=== PATIENT | female | born 1980 | race Caucasian/White ===

== ENCOUNTER 2016-10-29 12:50 | Inpatient (IN) | payer BC, OTHER ==
[2016-10-29] MEDS ORDERED: IV START KIT ONE (13:13)
[2016-10-29] MEDS ORDERED: OXYTOCIN 10 UNITS/ML VIAL ONE (13:13)
[2016-10-29] MEDS ORDERED: MINERAL OIL 25 ML BOT ONE (13:13)
[2016-10-29] MEDS ORDERED: SODIUM CHLORIDE 0.9% FLUSH 20 ML ONE (13:13)
[2016-10-29] MEDS ORDERED: LIDOCAINE 1% (PRES FREE) 30 ML VIAL ONE (13:13)
[2016-10-29] MEDS ORDERED: PUMP TUBING ONE (13:14)
[2016-10-29] MEDS ORDERED: LIDOCAINE Viscous 2% 15 ML UDCUP ONE (13:14)
[2016-10-29] MEDS ORDERED: OXYTOCIN IN LR 500 ML IV ONE ×2 (13:14→13:25)
[2016-10-29 14:49] VITALS: BMI 43.0
[2016-10-29 15:01] LABS: HEMOGLOBIN 11.7 gm/l (12.0-16.0); MEAN CELL VOLUME 84.3 fl (81.0-99.0); MEAN CORPUSCULAR HEMOGLOBIN 28.2 pg (27.0-31.0); MEAN CORPUSCULAR HGB CONC 33.4 g/dl (33.0-37.0)
[2016-10-29] MEDS ORDERED: MINERAL OIL 25 ML BOT TP ONE (21:13)
--- NOTE | 2016-10-29 21:34 | PCMDEL ---
Delivery Note - Delivery Delivery (Date): 10/29/16 Gender: Female Presentation: Cephalic Position: OA Umbilical Cord: 3 Vessel Delayed Cord Clamping:: > 3 min Placenta:: spontaneous and complete EBL:: 350 ml Perineum:: intact
--- NOTE | 2016-10-29 21:37 | PCMAN ---
OB Admission Note - History : 4 Term: 3 : 0 Abortions (S&E): 0 Livin Gestational Age (weeks): 38 Days (#/7): 0 Admit Cervical Dilation:: 3 Admit Cervical Effacement (%):: 50 Admit Station:: -2 Admit Presentaton:: vtx Membrane Status: Intact Rupture (Date): 10/29/16 Contractions: Yes Contraction Frequency:: irreg Heart Rate:: 144 Status:: good Summary of Course:: complicated by N&V, needed IV infusions 2x/wk. Hx severe back pain, used percocet 10mg QID thru - Labs Blood Type: O (+) positive
[2016-10-29] MEDS ORDERED: MEASLES,MUMPS&RUBELLA VACCINE 0.5 ML VIAL SUB-Q V ONE (21:49)
[2016-10-29] MEDS ORDERED: MAGNESIUM HYDROXIDE 30 ML UDCUP PO PRN (21:49)
[2016-10-29] MEDS ORDERED: LANOLIN 50 APPLIC/7G TUBE TP PRN (21:49)
[2016-10-29] MEDS ORDERED: DIPHTH,PERTUSS(ACELL),TET VAC 0.5 ML VIAL IM V ONE (21:49)
[2016-10-29] MEDS ORDERED: BENZOCAINE/MENTHOL 60 APPLIC/BOT TP PRN (21:49)
[2016-10-29] MEDS ORDERED: FLU VACC 2016-17 (36MO-64Y)/PF 60 MCG/0.5 ML SYRINGE IM V ONE (22:14)
[2016-10-29] MEDS: OXYCODONE/ACETAMINOPHEN 5/325 MG TABLET PO PRN (22:14)
[2016-10-29] MEDS: IBUPROFEN 800 MG TABLET PO PRN (22:14)
[2016-10-30] MEDS: IBUPROFEN 800 MG TABLET PO PRN ×4 (04:25→23:57)
[2016-10-30] MEDS: OXYCODONE/ACETAMINOPHEN 5/325 MG TABLET PO PRN ×5 (04:25→23:57)
[2016-10-30 07:00] LABS: HEMATOCRIT 32.2 % (37.0-47.0); HEMOGLOBIN 10.6 gm/l (12.0-16.0)
--- NOTE | 2016-10-30 09:34 | PDOC44 ---
- Subjective Day: 1 Reports Pain Tolerable, Reports Lochia Light, Reports Tolerating Regular Diet - Objective Temp Pulse Resp BP Pulse Ox 97.7 F 87 16 116/60 10/30/16 01:35 10/30/16 01:35 10/30/16 01:35 10/30/16 01:35 Lab Results 10/30/16 10/29/16 06:15 13:50 WBC 9.6 RBC 4.15 L Hgb 10.6 L 11.7 L Hct 32.2 L 35.0 L Plt Count 262 Current Medications Generic Name Dose Route Start Last Admin Trade Name Freq PRN Reason Stop Dose Admin Benzocaine/Menthol 1 applic 10/29/16 21:49 Dermoplast TP PRN PRN Patient Comfort Docusate Sodium 100 mg 10/30/16 09:00 Colace PO DAILY [facility] Emollient Ointment 1 applic 10/29/16 21:49 [id number] TP PRN PRN sore nipples Ibuprofen 800 mg 10/29/16 21:49 10/30/16 04:25 Motrin PO 800 mg Q6H PRN Administration Pain (Mild) Magnesium Hydroxide 30 ml 10/29/16 21:49 Milk Of Magnesia PO BEDTIME PRN Constipation Oxycodone/Acetaminophen 1 - 2 tab 10/29/16 21:49 10/30/16 04:25 Percocet 5/325 PO 2 tab Q4H PRN Administration Pain (Moderate) Sodium Chloride 10 ml 10/29/16 21:49 Normal Saline 10ml Flush IV PRN PRN IV Flush Sodium Chloride 10 ml 10/30/16 01:00 10/30/16 03:27 Normal Saline 10ml Flush IV Not Given Q8HR NIRAV - Physical Exam General: Afebrile Psych/Mental Status: Mood/Affect Appropriate Breast: Soft Fundus: Firm Abdomen: Normal Bowel Sounds Genitourinary: Normal Female Genitalia Disposition: Stable, Anticipate DC Home Tomorrow
[2016-10-30] MEDS: DOCUSATE SODIUM 100 MG CAPSULE PO SCH (10:13)
[2016-10-31] MEDS: OXYCODONE/ACETAMINOPHEN 5/325 MG TABLET PO PRN ×4 (04:31→20:29)
[2016-10-31] MEDS: DOCUSATE SODIUM 100 MG CAPSULE PO SCH (08:44)
[2016-10-31] MEDS: IBUPROFEN 800 MG TABLET PO PRN ×2 (08:44→16:06)
--- NOTE | 2016-10-31 09:59 | PDOC44 ---
- Subjective Day: 2 Reports Pain Tolerable, Reports , Reports Tolerating Regular Diet - Objective Temp Pulse Resp BP Pulse Ox 97.7 F 71 18 122/73 10/31/16 08:25 10/31/16 08:25 10/31/16 08:25 10/31/16 08:25 Current Medications Generic Name Dose Route Start Last Admin Trade Name Freq PRN Reason Stop Dose Admin Benzocaine/Menthol 1 applic 10/29/16 21:49 Dermoplast TP PRN PRN Patient Comfort Docusate Sodium 100 mg 10/30/16 09:00 10/31/16 08:44 Colace PO 100 mg DAILY NIRAV Administration Emollient Ointment 1 applic 10/29/16 21:49 [id number] TP PRN PRN sore nipples Ibuprofen 800 mg 10/29/16 21:49 10/31/16 08:44 Motrin PO 800 mg Q6H PRN Administration Pain (Mild) Magnesium Hydroxide 30 ml 10/29/16 21:49 Milk Of Magnesia PO BEDTIME PRN Constipation Oxycodone/Acetaminophen 1 - 2 tab 10/29/16 21:49 10/31/16 08:44 Percocet 5/325 PO 2 tab Q4H PRN Administration Pain (Moderate) Sodium Chloride 10 ml 10/29/16 21:49 Normal Saline 10ml Flush IV PRN PRN IV Flush Sodium Chloride 10 ml 10/30/16 01:00 10/31/16 07:23 Normal Saline 10ml Flush IV Not Given Q8HR NIRAV - Physical Exam General: Afebrile Psych/Mental Status: Mood/Affect Appropriate Breast: Soft Fundus: Firm Abdomen: Normal Bowel Sounds Genitourinary: Normal Female Genitalia Disposition: Stable, Anticipate DC to Home
[2016-10-31 16:11] VITALS: BP 107/80
== END 2016-10-31 20:45 | disposition home or self-care (01) | DRG 775 ==
LOC: FBC 12:50 → EDSTATUS 11-12 10:05
PROVIDERS: ADMIT Obstetrics & Gynecology; ATTEND Obstetrics & Gynecology
PROC: 10E0XZZ Delivery of Products of Conception, External Approach (ICD-10-PCS; principal; 2016-10-29)
DX: O75.89 Other specified complications of labor and delivery (principal); M54.9 Dorsalgia, unspecified; O09.43 Supervision of pregnancy with grand multiparity, third trimester; O09.523 Supervision of elderly multigravida, third trimester; Z3A.38 38 weeks gestation of pregnancy; Z37.0 Single live birth